=== PATIENT | female | born 1985 | race Caucasian/White ===

== ENCOUNTER → 2018-04-14 | Outpatient (CLI) | payer OTHER ==
[2017-03-02 15:45] VITALS: BMI 29.5
[~2018-04-14] MED LIST: ACET-1718 PO; DOCU-416 PO; IBUP800T37 PO; LACT1CAP6 PO; MULT-1335 PO; OXYC-865 PO; PREN-127 PO; SULF-198 PO
== END ==
LOC: LAB 16:31
PROVIDERS: ATTEND Obstetrics & Gynecology
DX: N76.4 Abscess of vulva (principal); B96.89 Other specified bacterial agents as the cause of diseases classified elsewhere
CPT/HCPCS: 87071; 87073